=== PATIENT | male | born 2005 | race Caucasian/White ===

== ENCOUNTER 2023-06-29 00:46 | Emergency (ER) | payer BC ==
[2023-06-29] MEDS ORDERED: Hydrocortisone/Neomycin/Polymyxin B Otic Susp 10 ML Bottle EARRT ONE (01:15)
[2023-06-29] MEDS ORDERED: Ciprofloxacin 0.3% Ophth Soln 2.5 ML Bottle EARRT ONE (01:18)
[2023-06-29] MEDS ORDERED: Ciprofloxacin 0.3% Ophth Soln 2.5 ML Bottle ONE (01:27)
== END 2023-06-29 01:49 | disposition home or self-care (01) ==
LOC: JP.ED 00:46
DX: S09.21XA Traumatic rupture of right ear drum, initial encounter (principal)
CPT/HCPCS: 99282; A9270